=== PATIENT | female | born 1980 | race African-American/Black ===

== ENCOUNTER 2023-01-14 07:53 | Emergency (ER) | payer OTHER ==
[2023-01-14] MEDS ORDERED: DIPHTH,PERTUSS(ACELL),TET 0.5 ML DISP.SYRIN IM ONE ×2 (08:00→08:08)
[2023-01-14 08:07] VITALS: BP 121/80; PULSE 83; RESP 18; TEMP 98.1; BMI 42.8
== END 2023-01-14 08:31 | disposition home or self-care (01) ==
LOC: FER 07:53
PROC: 3E0234Z Introduction of Serum, Toxoid and Vaccine into Muscle, Percutaneous Approach (ICD-10-PCS; principal; 2023-01-14)
DX: S61.213A Laceration without foreign body of left middle finger without damage to nail, initial encounter (principal); W27.4XXA Contact with kitchen utensil, initial encounter
CPT/HCPCS: 90471; 90715; 99284-25